=== PATIENT | male | born 1995 | race Hispanic/Latino ===

== ENCOUNTER 2017-05-19 01:08 | Emergency (ER) | payer OTHER ==
[2017-05-19 01:08] VITALS: BMI 21.2
[2017-05-19 01:25] VITALS: BP 106/67; PULSE 98; RESP 18; TEMP 97.5; O2SAT 96
== END 2017-05-19 02:50 | disposition left against medical advice (07) ==
LOC: ED 01:08
DX: Z02.89 Encounter for other administrative examinations (principal); H92.02 Otalgia, left ear